=== PATIENT | male | born 1985 | race Caucasian/White ===

== ENCOUNTER 2019-11-14 20:11 | Emergency (ER) | payer OTHER ==
[~2019-11-14] VITALS: Ht 172.7 cm; Wt 57.6 kg
[2019-11-14] MEDS ORDERED: PLEASE ENTER HEIGHT AND WEIGHT MC SCH (20:30)
[2019-11-14] MEDS ORDERED: LIDOCAINE 2%, 20ML SQ ONE (20:30)
[2019-11-14] MEDS ORDERED: LIDOCAINE-MPF 1%, 5ML ONE ×2 (21:30)
--- NOTE | 2019-11-14 21:39 | NUR ---
PT CAME IN TODAY DUE TO MAKING DINNER AND WHILE CUTTING CARROTS SLIPPED ADN CUT 4TH FINGER ON RIGHT HAND. CMS INTACT, SENSATION INTACT, GROSS NEURO INTACT. PT PLACED ON BP/SPO2 MONITOR. NAD, P/W/D, FCS no SOB. WCTM.
[2019-11-14] MEDS ORDERED: DIPH,PERTUSS(ACELL),TET VAC/PF 0.5 ML IM-VACC ONE ×2 (21:59→22:00)
[2019-11-14 22:10] VITALS: BP 119/87
--- NOTE | 2019-11-14 22:10 | NUR ---
PT SUTURED, TO BE BANDAGED. NO CHANGE IN CONDITION, NAD. WCTM
[2019-11-14] MEDS ORDERED: OXYcodone/APAP 5/325MG TABLET PO ONE (22:30)
[2019-11-14] MEDS ORDERED: OXYcodone/APAP 5/325MG TABLET ONE (22:36)
--- NOTE | 2019-11-14 22:52 | NUR ---
Patient given discharge instructions and they have confirmed that they understand the instructions. Patient ambulatory with steady gait. GF TO DRIVE HOME, NO BELONGINGS LEFT IN ROOM AT TIME OF DC. NAD, VSS, P/W/D. DENIES ADDITIONAL NEEDS OR QUESTIONS AT THIS TIME.
== END 2019-11-14 23:08 | disposition home or self-care (01) ==
LOC: ED 20:41
DX: S62.664B Nondisplaced fracture of distal phalanx of right ring finger, initial encounter for open fracture (principal); W26.0XXA Contact with knife, initial encounter; Y93.89 Activity, other specified; Y92.009 Unspecified place in unspecified non-institutional (private) residence as the place of occurrence of the external cause; Y99.8 Other external cause status
CPT/HCPCS: 12042; 90471; 90715; 99284